=== PATIENT | female | born 1990 | race African-American/Black ===

== ENCOUNTER 2017-03-10 21:50 | Emergency (ER) | payer MEDICAID, OTHER ==
[~2017-03-10] VITALS: Ht 167.6 cm; Wt 65.0 kg
[~2017-03-10 21:50] MED LIST: MACR100C PO; Z.0.BCPILL PO
[2017-03-10 21:52] VITALS: BP 134/81; PULSE 78; RESP 16; TEMP 98.9; O2SAT 100
[2017-03-10] MEDS ORDERED: DEXAMETHASONE SOD PHOS 20 MG/5 ML VIAL IM ONE (22:45)
[2017-03-10] MEDS ORDERED: ORPHENADRINE INJ 60 MG/2 ML AMP IM ONE (22:45)
[2017-03-10] MEDS ORDERED: KETOROLAC TROMETHAMINE 60 MG/2 ML (IM) VIAL IM ONE (22:45)
[2017-03-10] MEDS ORDERED: ROBA500T PO (22:47)
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
== END 2017-03-11 00:05 | disposition home or self-care (01) ==
LOC: NEPK 21:50
DX: M62.838 Other muscle spasm (principal); R51 Headache; M54.2 Cervicalgia; V49.50XD Passenger injured in collision with unspecified motor vehicles in traffic accident, subsequent encounter
CPT/HCPCS: 96372; 99284; J1100; J1885; J2360

== ENCOUNTER 2017-04-25 03:25 | Emergency (ER) | payer MEDICAID, OTHER ==
[~2017-04-25] VITALS: Ht 167.6 cm; Wt 58.0 kg
[~2017-04-25 03:25] MED LIST changes: -MACR100C PO; +ROBA500T PO; -Z.0.BCPILL PO
[2017-04-25 03:28] VITALS: BP 122/75; PULSE 80; RESP 16; TEMP 98.5; O2SAT 98
--- NOTE | 2017-04-25 04:07 | PD ---
HPI Chief Complaint: ENT Complaint Time Seen by Provider: 04:00 Travel History International Travel<30 days: No Contact w/Intl Traveler<30days: No Traveled to known affect area: No History of Present Illness HPI 26-year-old female presents for evaluation of sore throat. Symptoms started 1 week ago. It hurts to swallow. Denies rash, cough, congestion, fevers, chills, . No other complaints. PFSH Past Medical History Diminished Hearing: No Kidney Stones: Yes Immunizations Current: Yes ?: Not LMP: 04/11/17 : 1 Para: 1 Past Surgical History Other Surgery: Yes (KIDNEY STONE SX) Social History Alcohol Use: Yes (weekly) Tobacco Use: No Substance Use: No Allergies-Medications (Allergen,Severity, Reaction): Coded Allergies: Aspirin (Verified Allergy, Severe, Anaphylaxis, 04/25/17) Reported Meds & Prescriptions Reported Meds & Active Scripts Active No Active Prescriptions or Reported Medications Review of Systems Except as stated in HPI: all other systems reviewed are Neg Physical Exam Narrative GENERAL: Well-developed well-nourished female in no acute distress SKIN: Warm and dry. HEAD: Atraumatic. Normocephalic. EYES: Pupils equal and round. No scleral icterus. No injection or drainage. ENT: No nasal bleeding or discharge. Mucous membranes pink and moist. No oral pharyngeal erythema or exudate, uvula midline with no mass effect, no stridor or drooling. NECK: Trachea midline. No JVD. No adenopathy, neck supple full range of motion CARDIOVASCULAR: Regular rate and rhythm. No murmur appreciated. RESPIRATORY: No accessory muscle use. Clear to auscultation. Breath sounds equal bilaterally. Data Data Last Documented VS Vital Signs Date Time Temp Pulse Resp B/P Pulse Ox O2 Delivery O2 Flow Rate FiO2 04/25/17 03:47 80 16 04/25/17 03:28 98.5 122/75 98 Room Air Orders Group A Rapid Strep Screen (04/25/17 04:01) Strep Culture (Group A) (04/25/17 04:25) [facility] Medical Decision Making Medical Screen Exam Complete: Yes Emergency Medical Condition: Yes Medical Record Reviewed: Yes Differential Diagnosis Pharyngitis, tonsillitis, peritonsillar abscess, infectious mononucleosis, herpangina, epiglottitis, retropharyngeal abscess Narrative Course 26-year-old female saw her throat for one week. Physical examination is unremarkable. I suspect a viral pharyngitis clinically. Rapid strep screen was performed and it is negative. She is stable for discharge. Diagnosis Primary Impression: Pharyngitis Qualified Code: J02.9 - Pharyngitis, unspecified etiology Departure Forms: Tests/Procedures, Work Release Enter return to work date: Apr 26, 2017 Additional Instructions: Stay well hydrated well-nourished, get plenty of rest. Use [id number] Tylenol or Motrin for pain per dosing instructions on the bottle. Return for any emergent medical conditions. Med/Other Pt SpecificInfo: No Change to Meds Scripts No Active Prescriptions or Reported Meds Disposition: 01 DISCHARGE HOME Condition: Stable Shayne Ortiz Apr 25, 2017 04:07
== END 2017-04-25 05:15 | disposition home or self-care (01) ==
LOC: NEPD 03:25
DX: J02.9 Acute pharyngitis, unspecified (principal)
CPT/HCPCS: 87081; 87880; 99283